=== PATIENT | male | born 1950 ===

== ENCOUNTER 2019-10-26 15:29 | Observation (INO) | payer MEDICARE ==
--- NOTE | 2019-10-26 15:42 | ER Document Report ---
ED Medical Screen (RME) - General Chief Complaint: Chest Pain Stated Complaint: CHEST PAIN Time Seen by Provider: 10/26/19 15:32 Mode of Arrival: Ambulatory Information source: Patient Notes: Patient presents complaining of chest pain to the midsternal area. Patient states pain started 5 days ago and resolved and then returned again this morning. Patient states today his arms were numb and the pain radiated into his jaw. Patient does complain of nausea and shortness of breath. Patient denies any significant medical history. I have greeted and performed a rapid initial assessment of this patient. A comprehensive ED assessment and evaluation of the patient, analysis of test results and completion of the medical decision making process will be conducted by additional ED providers. Physical Exam - Respiratory Respiratory status: No respiratory distress Chest status: Tender - Cardiovascular Rhythm: Regular Heart sounds: S1 appreciated, S2 appreciated
[2019-10-26 16:08] LABS: ABSOLUTE EOSINOPHILS # (AUTO) 0.1 10^3/uL (0.0-0.6); ABSOLUTE LYMPHOCYTES (AUTO) 1.3 10^3/uL (0.5-4.7); ABSOLUTE MONOCYTES (AUTO) 0.6 10^3/uL (0.1-1.4); ABSOLUTE NEUT (AUTO) 3.2 10^3/uL (1.7-8.2); BASOPHILS % (AUTO) 0.7 % (0-2); EOSINOPHILS % (AUTO) 2.4 % (0-6); HEMATOCRIT 43.9 % (37.9-51.0); HEMOGLOBIN 15.2 g/dL (13.5-17.0); LYMPHOCYTES % (AUTO) 24.5 % (13-45); MEAN CORPUSCULAR HEMOGLOBIN 30.3 pg (27.0-33.4); MEAN CORPUSCULAR HGB CONC 34.6 g/dL (32.0-36.0); MEAN CORPUSCULAR VOLUME 88 fl (80-97); PLATELET COUNT 227 10^3/uL (150-450); RED BLOOD COUNT 5.01 10^6/uL (4.35-5.55); RED CELL DISTRIBUTION WIDTH 13.8 % (11.5-14.0); SEGMENTED NEUTROPHILS % (AUTO) 60.4 % (42-78); TOTAL CELLS COUNTED % (AUTO) 100 %; WHITE BLOOD COUNT 5.3 10^3/uL (4.0-10.5)
--- NOTE | 2019-10-26 16:16 | RADIOLOGY REPORT (SQ) ---
EXAM DESCRIPTION: CHEST 2 VIEWS IMAGES COMPLETED DATE/TIME: 10/26/2019 4:09 pm REASON FOR STUDY: cp COMPARISON: None. EXAM PARAMETERS: NUMBER OF VIEWS: two views TECHNIQUE: Digital Frontal and Lateral radiographic views of the chest acquired. RADIATION DOSE: NA LIMITATIONS: none FINDINGS: LUNGS AND PLEURA: No opacities, masses or pneumothorax. No pleural effusion. MEDIASTINUM AND HILAR STRUCTURES: No masses or contour abnormalities. HEART AND VASCULAR STRUCTURES: Heart normal size. No evidence for failure. BONES: No acute findings. HARDWARE: None in the chest. OTHER: No other significant finding. IMPRESSION: NO ACUTE RADIOGRAPHIC FINDING IN THE CHEST. TECHNICAL DOCUMENTATION: JOB ID: [id number] 2010 [employer]- All Rights Reserved Reading location - IP/workstation name: [email or web address]
[2019-10-26 16:21] LABS: ALBUMIN 4.7 g/dL (3.5-5.0); ALKALINE PHOSPHATASE 67 U/L (38-126); ANION GAP 6 (5-19); ASPARTATE AMINO TRANSFERASE 49 U/L (17-59); BILIRUBIN,TOTAL 0.4 mg/dL (0.2-1.3); BLOOD UREA NITROGEN 10 mg/dL (7-20); CALCIUM 10.3 mg/dL (8.4-10.2); CARBON DIOXIDE 25 mmol/L (22-30); CHLORIDE 107 mmol/L (98-107); GLUCOSE 108 mg/dL (75-110); TOTAL PROTEIN 7.8 g/dL (6.3-8.2)
[2019-10-27] MEDS ORDERED: ASPIRIN 81 MG TABLET, CHEWABLE PO ONE ×2 (02:36→07:00)
--- NOTE | 2019-10-27 02:48 | ER Document Report ---
ED General - General Chief Complaint: Chest Pain Stated Complaint: CHEST PAIN Time Seen by Provider: 10/26/19 15:32 Mode of Arrival: Ambulatory - [facility] Notes: 69-year-old male history of hyperlipidemia, "borderline hypertension "presents with episodes of chest pain over the past 2 days. Patient states he was working in garden and felt sudden onset of retrosternal chest pressure radiating to bilateral jaw and bilateral arms associated with nausea, shortness of breath, feeling of impending doom that lasted for approximately 45 minutes and then resolved with rest. Patient had 2 similar episodes on day of presentation without exertion. Patient denies ever having any prior similar episodes, cardiac history, previous cardiac work-up, diabetes, lower extremity edema, PE risk factors, cough, fever, drug use - Related Data Allergies/Adverse Reactions: No Known Allergies Allergy (Verified 10/27/19 08:12) Past Medical History - General Information source: Patient - Social History Smoking Status: Unknown if Ever Smoked Family History: Reviewed & Not Pertinent Review of Systems - Review of Systems Notes: REVIEW OF SYSTEMS: CONSTITUTIONAL : Denies fever, chills, or sweats. EENT: Denies recent cold/sinus symptoms, denies throat pain CARDIOVASCULAR: +chest pain, -[place] RESPIRATORY: Denies cough, +shortness of breath. GASTROINTESTINAL: Denies abdominal pain, nausea/vomiting. GENITOURINARY: Denies difficulty urinating, painful urination. MUSCULOSKELETAL: Denies neck pain, back pain. SKIN: Denies rash or skin lesions. HEMATOLOGIC : Denies easy bruising or bleeding. LYMPHATIC: Denies swollen, enlarged glands. NEUROLOGICAL: Denies headache, denies change in gait. PSYCHIATRIC: Denies anxiety or stress or depression. Physical Exam - Vital signs Vitals: Temp Pulse Resp BP Pulse Ox 97.3 F 84 18 156/95 H 99 10/26/19 15:37 10/26/19 15:37 10/26/19 15:37 10/26/19 15:37 10/26/19 15:37 - Notes Notes: PHYSICAL EXAMINATION: GENERAL: Well-appearing, well-nourished, pleasant middle-age man ambulatory in ED and in no acute distress. HEAD: Atraumatic, normocephalic. EYES: Pupils equal round and appropriate constriction, sclera anicteric, conjunctiva are normal. ENT: nares patent, moist mucous membranes. NECK: Normal range of motion, supple without lymphadenopathy LUNGS: Breath sounds clear to auscultation bilaterally and equal. No wheezes rales or rhonchi. HEART: Regular rate and rhythm without murmurs ABDOMEN: Soft, nontender, no guarding, no masses, no CVAT EXTREMITIES: Normal range of motion, no pitting or edema. No cyanosis. NEUROLOGICAL: Awake, alert, conversing appropriately, moves all extremities spontaneously. PSYCH: Normal mood, normal affect. SKIN: Warm, Dry, normal turgor, no rashes or lesions noted. Course - Re-evaluation Re-evalutation: 10/27/19 02:46 Presentation concerning for anginal symptoms. No signs of acute ischemia on EKG and initial troponins negative. Given concerning story and ACS risk factors including age and hyperlipidemia patient appropriate for observation admission for cardiology eval/stress test. Symptoms episodic and not consistent with PE. Patient very well at time of my evaluation without any current chest pain. Will give aspirin. Discussed case with hospitalist Dr. Ocasio who has accepted patient to observation telemetry. - Vital Signs Vital signs: Temp Pulse Resp BP Pulse Ox 97.6 F 67 17 144/87 H 98 10/28/19 14:15 10/28/19 14:15 10/28/19 14:15 10/28/19 14:15 10/28/19 14:15 - Laboratory Result Diagrams: 10/26/19 15:50 10/26/19 15:50 Laboratory results interpreted by me: 10/26/19 15:50 Calcium 10.3 H ALT 54 H - EKG Interpretation by Me Additional EKG results interpreted by me: 10/26/19 16:00 Heart rate 72, normal sinus rhythm, right bundle branch block, no significant ST elevations or depressions Discharge - Discharge Clinical Impression: Chest pain Qualifiers: Chest pain type: unspecified Qualified Code(s): R07.9 - Chest pain, unspecified Condition: Good Disposition: ADMITTED OBSERVATION Admitting Provider: Amarjit (Hospitalist) Unit Admitted: Telemetry
[2019-10-27] MEDS ORDERED: MAG HYDROX/AL HYDROX/SIMETH SUSP 30 ML UDCUP PO PRN (03:16)
[2019-10-27] MEDS ORDERED: ONDANSETRON HCL INJ/PF 4 MG/2 ML SDV IV PRN (03:16)
[2019-10-27] MEDS ORDERED: MAGNESIUM HYDROXIDE SUSP 30 ML UDCUP PO PRN (03:16)
--- NOTE | 2019-10-27 06:14 | PDOC H&P ---
History of Present Illness Admission Date/PCP: 10/27/2019 02:58 No local PCP Patient complains of: Chest pain History of Present Illness: KATT FRANKLIN is a 69 year old male who presented emergency room with a 5-day history of chest pain. He admits developing sudden onset of severe substernal chest pressure with a pain/numbness sensation radiating to both sides of his neck/jaw and down both arms while doing some light work in his garden 5 days ago. The pain lasted for 45 minutes and resolved with rest. Pain was accompanied by nausea and dyspnea and was associated with a feeling of impending . He subsequently has experienced 2 similar but slightly more intense episodes, occurring while at rest, over the 24-hour period prior to his emergency room presentation. He denies other associated or accompanying signs and symptoms. He denies prior similar episodes. He has not identified any additional aggravating or ameliorating factors for his chest pain. In the emergency room he was found to have normal cardiac enzymes and an EKG that showed no evidence of ischemia or injury to the myocardium. He was subsequently admitted to the hospital on observation status for further evaluation and treatment. Past Medical History Cardiac Medical History: Reports: Hyperlipidema, Hypertension Denies: Coronary Artery Disease Pulmonary Medical History: Denies: Asthma, Chronic Obstructive Pulmonary Disease (COPD) EENT Medical History: Denies: Cataracts, Ears - Hands Neurological Medical History: Denies: Hemorrhagic CVA, Ischemic CVA, Seizures Endocrine Medical History: Denies: Diabetes Mellitus Type 1, Diabetes Mellitus Type 2, Hyperthyroidism, Hypothyroidism Renal/ Medical History: Denies: Chronic Kidney Disease, Nephrolithiasis Malignancy Medical History: Reports: None GI Medical History: Denies: Cirrhosis, Crohn's Disease, Hepatitis, Peptic Ulcer Disease, Ulcerative Colitis Musculoskeltal Medical History: Denies: Arthritis, Gout Skin Medical History: Denies: Eczema, Psoriasis Psychiatric Medical History: Denies: Alcohol Dependency, Substance Abuse, Tobacco Dependency Traumatic Medical History: Reports: None Hematology: Denies: Anemia, Bleeding Tendencies Infectious Medical History: Reports: None Past Surgical History Past Surgical History: Reports: None Social History Information Source: Patient Lives with: Spouse/Significant other Smoking Status: Former Smoker Electronic Cigarette use?: No Frequency of Alcohol Use: Social - Drinks 2 (Takata) beers daily Hx Recreational Drug Use: No Drugs: None Hx Prescription Drug Abuse: No - Advance Directive Resuscitation Status: Full Code Family History Family History: denies: CAD, DM, Hypertension, Malignancy Parental Family History Reviewed: Yes Children Family History Reviewed: No Sibling(s) Family History Reviewed.: Yes Medication/Allergy Allergies/Adverse Reactions: No Known Allergies Allergy (Unverified 10/27/19 05:26) Review of Systems Constitutional: ABSENT: chills, fever(s) Eyes: ABSENT: visual disturbances, other - Eye pain Ears: ABSENT: hearing changes, other - Ear pain Nose, Mouth, and Throat: ABSENT: headache(s), sore throat Cardiovascular: PRESENT: as per HPI, chest pain. ABSENT: palpitations Respiratory: PRESENT: as per HPI, dyspnea. ABSENT: cough Gastrointestinal: PRESENT: nausea. ABSENT: abdominal pain, diarrhea Genitourinary: ABSENT: dysuria, hematuria Musculoskeletal: ABSENT: back pain, joint swelling Integumentary: ABSENT: pruritus, rash Neurological: ABSENT: confusion, convulsions, memory loss, syncope Psychiatric: ABSENT: anxiety, depression Endocrine: ABSENT: cold intolerance, heat intolerance Hematologic/Lymphatic: ABSENT: easy bleeding, easy bruising Allergic/Immunologic: ABSENT: seasonal rhinorrhea Physical Exam Vital Signs: Temp Pulse Resp BP Pulse Ox 97.3 F 84 18 156/95 H 99 10/26/19 15:37 10/26/19 15:37 10/26/19 15:37 10/26/19 15:37 10/26/19 15:37 General appearance: PRESENT: no acute distress, cooperative Head exam: PRESENT: atraumatic, normocephalic Eye exam: PRESENT: conjunctiva pink. ABSENT: conjunctival injection, scleral icterus Ear exam: PRESENT: normal external ear exam. ABSENT: bleeding, drainage Mouth exam: PRESENT: dry mucosa, neck supple Neck exam: ABSENT: thyromegaly, tracheal deviation Respiratory exam: PRESENT: clear to auscultation xander, symmetrical, unlabored Cardiovascular exam: PRESENT: RRR. ABSENT: clicks, gallop, rubs Pulses: PRESENT: normal radial pulses, normal dorsalis pedis pul Vascular exam: PRESENT: normal capillary refill. ABSENT: pallor GI/Abdominal exam: PRESENT: normal bowel sounds, soft Rectal exam: PRESENT: deferred Extremities exam: ABSENT: joint swelling, pedal edema Musculoskeletal exam: ABSENT: deformity, dislocation Neurological exam: PRESENT: alert, oriented to person, oriented to place, oriented to time, oriented to situation, CN II-XII grossly intact. ABSENT: motor sensory deficit Psychiatric exam: PRESENT: appropriate affect, normal mood Skin exam: PRESENT: dry, intact, warm. ABSENT: jaundice, rash, urticaria Results Laboratory Results: 10/26/19 15:50 10/26/19 15:50 10/26/19 10/26/19 15:50 15:50 WBC 5.3 RBC 5.01 Hgb 15.2 Hct 43.9 MCV 88 MCH 30.3 MCHC 34.6 RDW 13.8 Plt Count 227 Seg Neutrophils % 60.4 Sodium 137.9 Potassium 4.0 Chloride 107 Carbon Dioxide 25 Anion Gap 6 BUN 10 Creatinine 0.78 Est GFR ( Amer) > 60 Glucose 108 Calcium 10.3 H Magnesium 2.2 Total Bilirubin 0.4 AST 49 Alkaline Phosphatase 67 Total Protein 7.8 Albumin 4.7 Lipase 99.9 10/26/19 10/26/19 15:50 19:42 Troponin I 0.030 0.014 Impressions: Chest X-Ray 10/26/19 15:40 IMPRESSION: NO ACUTE RADIOGRAPHIC FINDING IN THE CHEST. Assessment and Plan - Diagnosis (1) Chest pain Qualifiers: Chest pain type: unspecified Qualified Code(s): R07.9 - Chest pain, unspecified Is this a current diagnosis for this admission?: Yes (2) Hyperlipidemia Qualifiers: Hyperlipidemia type: unspecified Qualified Code(s): E78.5 - Hyperlipidemia, unspecified Is this a current diagnosis for this admission?: Yes (3) Hypertension Qualifiers: Hypertension type: essential hypertension Qualified Code(s): I10 - Essential (primary) hypertension Is this a current diagnosis for this admission?: Yes (4) Serum calcium elevated Is this a current diagnosis for this admission?: Yes (5) Elevated alanine aminotransferase (ALT) level Is this a current diagnosis for this admission?: Yes - Plan Summary Summary: Patient will be admitted observation status on the medical floor in a telemetry bed where he will receive routine supportive and symptomatic cares. He will be seen in cardiology consultation by Dr. Serrano. We will plan for a Cardiolite stress test to be done later this morning. Will use sublingual nitroglycerin as needed for chest pain. He will use morphine sulfate 2 to 4 mg IV every 2 hours as needed for chest pain not responding to nitroglycerin. He will use Ativan 1 mg IV every 4 hours as needed for anxiety or restlessness. He will be on a stress test special diet for the morning and started on a cardiac diet later in the day. Additional laboratory and/or radiographic evaluations will be obtained as needed. - Time Time Spent with patient: 15-24 minutes Medications reviewed and adjusted accordingly: Yes Anticipated discharge: Home Within: within 36 hours - Inpatient Certification Based on my medical assessment, after consideration of the patient's comorbidities, presenting symptoms, or acuity I expect that the services needed warrant INPATIENT care.: No I certify that my determination is in accordance with my understanding of Medicare's requirements for reasonable and necessary INPATIENT services [42 CFR 412.3e].: No
[2019-10-27] MEDS: HEPARIN SOD (PORCINE) 5,000 UNIT/ML 1 ML VIAL SUBCUT SCH ×3 (07:00→22:16)
[2019-10-27 07:31] LABS: CHOLESTEROL 268.25 mg/dL (0-200); CREATINE KINASE 81 U/L (55-170); TRIGLYCERIDES 228 mg/dL (<150)
[2019-10-27 07:42] LABS: CREATINE KINASE MB 0.96 ng/mL (<4.55); DIRECT LDL 193 mg/dL (<100)
[2019-10-27 07:47] LABS: TROPONIN I < 0.012 ng/mL; VLDL CHOLESTEROL 45.6 mg/dL (10-31)
--- NOTE | 2019-10-27 09:26 | EKG REPORT ---
SEVERITY:- ABNORMAL ECG - SINUS RHYTHM PROBABLE LEFT ATRIAL ABNORMALITY RIGHT BUNDLE BRANCH BLOCK : Confirmed by: Abbey Sabillon 27-Oct-2019 09:25:29
[2019-10-27] MEDS: DOCUSATE SODIUM 100 MG CAPSULE PO SCH (10:19)
[2019-10-27] MEDS: FAMOTIDINE 20 MG TABLET PO SCH ×2 (10:19→22:16)
--- NOTE | 2019-10-27 11:59 | PDOC CONSULTATION ---
Consultation Consult Date: 10/27/19 Attending physician:: NITA LAWSON Provider Consulted: KATIE RUSSELL Consult reason:: CP History of Present Illness Admission Date/PCP: 10/27/19 03:22 History of Present Illness: KATT FRANKLIN is a 69 year old male with history of hypertension, hyperlipidemia, ex-smoker who quit 5 years ago and not no family history of coronary artery disease who is consulted to our service for evaluation of chest pain. The patient began with chest pain approximately 5 days ago and describes it as a severe substernal chest pressure radiating to both sides of his neck/jaw and down both arms and his lower jaw. The pain lasted for 45 minutes and resolved essentially spontaneously. He did feel short of breath but denied diaphoresis, palpitations, syncope and presyncope. He subsequently has experienced 2 similar but slightly more intense episodes, occurring while at rest, over the 24-hour period prior to his emergency room presentation. He denies prior episodes of chest pain and had been swimming recently without chest pain. He states that he feels a similar pain but localized to the right side of the chest when he lays on his left side. He also states that he occasionally feels the substernal pressure when putting pressure on his chest. Physical exam on 10/27/2019: GENERAL: Pleasant and conversational. Oriented x3 with normal mood. Not in acute distress. Well groomed and well developed. HEENT: Normocephalic, atraumatic. Pupils equal. Sclerae anicteric. Oropharynx moist. NECK: No JVD. No carotid bruits. LUNGS: Clear to auscultation bilaterally. Normal respiratory effort without the use of accessory muscles or intercostal retractions. CARDIOVASCULAR: Regular rate and rhythm, normal S1 and S2 without murmurs, rubs, or gallops. PMI not displaced. ABDOMEN: No masses or tenderness to palpation. No bruit. No splenomegaly or hepatomegaly. No abdominal aorta bruit noted. EXTREMITIES: No edema, no cyanosis, no clubbing. +2 pulses femoral and pedal pulses bilaterally. SKIN: No lesions or rashes. MUSCULOSKELETAL: Palpation of the chest triggers index symptoms. NEUROLOGIC: Nonfocal. No gross sensory or motor deficits bilateral upper or lower extremities. Past Medical History Cardiac Medical History: Reports: Hyperlipidema, Hypertension Denies: Coronary Artery Disease Pulmonary Medical History: Denies: Asthma, Chronic Obstructive Pulmonary Disease (COPD) EENT Medical History: Denies: Cataracts, Ears - Hands Neurological Medical History: Denies: Hemorrhagic CVA, Ischemic CVA, Seizures Endocrine Medical History: Denies: Diabetes Mellitus Type 1, Diabetes Mellitus Type 2, Hyperthyroidism, Hypothyroidism Renal/ Medical History: Denies: Chronic Kidney Disease, Nephrolithiasis Malignancy Medical History: Reports: None GI Medical History: Denies: Cirrhosis, Crohn's Disease, Hepatitis, Peptic Ulcer Disease, Ulcerative Colitis Musculoskeltal Medical History: Denies: Arthritis, Gout Skin Medical History: Denies: Eczema, Psoriasis Psychiatric Medical History: Denies: Alcohol Dependency, Depression, Substance Abuse, Tobacco Dependency Traumatic Medical History: Reports: None Hematology: Denies: Anemia, Bleeding Tendencies Infectious Medical History: Reports: None Past Surgical History Past Surgical History: Reports: None Social History Lives with: Spouse/Significant other Smoking Status: Former Smoker Cigarettes Packs Per Day: 0.5 Electronic Cigarette use?: No Last Time Smoked: 2014 Frequency of Alcohol Use: Social - Drinks 2 (Takata) beers daily Hx Recreational Drug Use: No Drugs: None Hx Prescription Drug Abuse: No - Advance Directive Resuscitation Status: Full Code Family History Family History: denies: CAD, DM, Hypertension, Malignancy Parental Family History Reviewed: Yes Children Family History Reviewed: Yes Sibling(s) Family History Reviewed.: Yes Medication/Allergy Home Medications: No Home Medications 10/27/19 Allergies/Adverse Reactions: No Known Allergies Allergy (Verified 10/27/19 08:12) Physical Exam Vital Signs: Temp Pulse Resp BP Pulse Ox 97.5 F 67 16 144/87 H 99 10/27/19 05:56 10/27/19 05:56 10/27/19 05:56 10/27/19 05:56 10/27/19 05:56 Intake & Output 10/26/19 10/27/19 10/28/19 06:59 06:59 06:59 Intake Total 0 Output Total 0 Balance 0 Weight 82.4 kg Results Laboratory Results: 10/26/19 15:50 10/26/19 15:50 10/26/19 10/26/19 15:50 15:50 WBC 5.3 RBC 5.01 Hgb 15.2 Hct 43.9 MCV 88 MCH 30.3 MCHC 34.6 RDW 13.8 Plt Count 227 Seg Neutrophils % 60.4 Sodium 137.9 Potassium 4.0 Chloride 107 Carbon Dioxide 25 Anion Gap 6 BUN 10 Creatinine 0.78 Est GFR ( Amer) > 60 Glucose 108 Calcium 10.3 H Magnesium 2.2 Total Bilirubin 0.4 AST 49 Alkaline Phosphatase 67 Total Protein 7.8 Albumin 4.7 Lipase 99.9 10/26/19 10/26/19 15:50 19:42 Troponin I 0.030 0.014 Impressions: Chest X-Ray 10/26/19 15:40 IMPRESSION: NO ACUTE RADIOGRAPHIC FINDING IN THE CHEST. 10/26/19 15:50 10/26/19 15:50 MCV 88 fl (80-97) 10/26/19 15:50 MCH 30.3 pg (27.0-33.4) 10/26/19 15:50 MCHC 34.6 g/dL (32.0-36.0) 10/26/19 15:50 RDW 13.8 % (11.5-14.0) 10/26/19 15:50 Seg Neutrophils % 60.4 % (42-78) 10/26/19 15:50 Chloride 107 mmol/L (98-107) 10/26/19 15:50 Carbon Dioxide 25 mmol/L (22-30) 10/26/19 15:50 Anion Gap 6 (5-19) 10/26/19 15:50 Est GFR ( Amer) > 60 (>60) 10/26/19 15:50 Glucose 108 mg/dL (75-110) 10/26/19 15:50 Calcium 10.3 mg/dL (8.4-10.2) H 10/26/19 15:50 Magnesium 2.2 mg/dL (1.6-2.3) 10/26/19 15:50 Total Bilirubin 0.4 mg/dL (0.2-1.3) 10/26/19 15:50 AST 49 U/L (17-59) 10/26/19 15:50 Alkaline Phosphatase 67 U/L (38-126) 10/26/19 15:50 Total Protein 7.8 g/dL (6.3-8.2) 10/26/19 15:50 Albumin 4.7 g/dL (3.5-5.0) 10/26/19 15:50 Lipase 99.9 U/L (23-300) 10/26/19 15:50 10/26/19 10/26/19 15:50 19:42 Troponin I 0.030 0.014 Current Medication List Generic Name Dose Route Start Last Admin Trade Name Maico PRN Reason Stop Dose Admin Al Hydrox/Mg Hydrox/Simethicone 30 ml 10/27/19 03:16 Maalox Plus Susp 30 Udcup PO 11/26/19 03:15 Q6HP PRN HEARTBURN Docusate Sodium 100 mg 10/27/19 10:00 Colace 100 Mg Capsule PO 11/26/19 09:59 DAILY NAZIA Famotidine 20 mg 10/27/19 10:00 Pepcid 20 Mg Tablet PO 11/26/19 09:59 Q12 NAZIA Heparin Sodium (Porcine) 5,000 unit 10/27/19 06:00 10/27/19 07:00 Heparin Inj 5,000 Units/Ml 1 Ml Vial SUBCUT 11/26/19 05:59 5,000 unit Q8 NAZIA Administration Magnesium Hydroxide 30 ml 10/27/19 03:16 Milk Of Magnesia 30 Ml Udcup PO 11/26/19 03:15 DAILYP PRN FOR CONSTIPATION Ondansetron HCl 4 mg 10/27/19 03:16 Zofran Inj/Pf 4 Mg/2 Ml Sdv IV 11/26/19 03:15 Q4HP PRN FOR NAUSEA/VOMITING Sodium Chloride 2.5 ml 10/27/19 06:00 10/27/19 07:08 Saline Flush 2.5 Ml Monoject Prefil Syrin IV 11/26/19 05:59 2.5 ml Q8 NAZIA Administration Discontinued Medications Generic Name Dose Route Start Last Admin Trade Name Maico PRN Reason Stop Dose Admin Aspirin 324 mg 10/27/19 02:36 10/27/19 07:09 Aspirin 81 Mg Chewable Tablet PO 10/27/19 02:37 Not Given NOW ONE Aspirin 324 mg 10/27/19 07:00 10/27/19 07:11 Aspirin 81 Mg Chewable Tablet PO 10/27/19 07:01 324 mg NOW ONE Administration Assessment & Plan - Diagnosis (1) Chest pain Qualifiers: Chest pain type: unspecified Qualified Code(s): R07.9 - Chest pain, unspecified Is this a current diagnosis for this admission?: Yes Plan: 69-year-old male with recurrent chest pain with both typical and atypical features in the setting of cardiac risk factors of hypertension, hyperlipidemia, gender and ex-smoker. His initial EKG showed normal sinus rhythm with right bundle branch block but no ischemic symptoms and his initial troponin was indeterminate however has trended down. Given the recurrence of his symptoms and significant cardiac risk factors we will proceed with Lexiscan nuclear stress test. Recommendations: -Continue with baby aspirin daily. -Continue with cardiac telemetry. -Sublingual nitroglycerin if chest pain recurs. -Stat EKG if chest pain recurs. -Echocardiogram to assess for structural heart disease. -Lexiscan nuclear stress test as scheduled. (2) Hyperlipidemia Qualifiers: Hyperlipidemia type: unspecified Qualified Code(s): E78.5 - Hyperlipidemia, unspecified Is this a current diagnosis for this admission?: Yes Plan: His LDL is 193 therefore he should be treated with high intensity statin therapy. Recommendations: -Start atorvastatin 80 mg daily. -LFTs a lipid panel in 6 weeks. (3) Hypertension Qualifiers: Hypertension type: essential hypertension Qualified Code(s): I10 - Essential (primary) hypertension Is this a current diagnosis for this admission?: Yes Plan: His blood pressure is above his goal of 130/80 or below. Recommendations: -Start lisinopril 10 mg daily. -Continue to monitor response to ALVARO inhibitor.
--- NOTE | 2019-10-27 16:31 | PDOC PROGRESS REPORT ---
Subjective Progress Note for:: 10/27/19 Subjective:: The patient is comfortable. No complaints of chest pain or pressure. He does report intermittent shortness of breath. He can happen when he ambulates but he will also reports some shortness of breath even when he is sitting and eating. Reason For Visit: CHEST PAIN Physical Exam Vital Signs: Temp Pulse Resp BP Pulse Ox 97.8 F 67 15 123/71 98 10/27/19 12:14 10/27/19 14:00 10/27/19 12:14 10/27/19 12:14 10/27/19 12:14 Intake & Output 10/26/19 10/27/19 10/28/19 06:59 06:59 06:59 Intake Total 0 Output Total 0 Balance 0 Weight 82.4 kg General appearance: PRESENT: no acute distress, cooperative, well-developed Head exam: PRESENT: atraumatic, normocephalic Eye exam: PRESENT: conjunctiva pink. ABSENT: scleral icterus Respiratory exam: PRESENT: clear to auscultation xander, symmetrical, unlabored. ABSENT: rales, rhonchi, tachypnea, wheezes Cardiovascular exam: PRESENT: RRR, +S1, +S2. ABSENT: bradycardia, diastolic murmur, irregular rhythm, systolic murmur, tachycardia GI/Abdominal exam: PRESENT: normal bowel sounds, soft. ABSENT: distended, tenderness Extremities exam: ABSENT: pedal edema Neurological exam: PRESENT: alert, awake, oriented to person, oriented to place, oriented to time, oriented to situation, CN II-XII grossly intact. ABSENT: altered, motor sensory deficit Psychiatric exam: PRESENT: appropriate affect, normal mood. ABSENT: agitated, anxious Focused psych exam: ABSENT: delusional, paranoid, restlessness Skin exam: PRESENT: dry, normal color, warm. ABSENT: rash Results Laboratory Results: 10/26/19 15:50 10/26/19 15:50 10/27/19 10/27/19 06:41 06:41 Magnesium 2.2 Triglycerides 228 H Cholesterol 268.25 H LDL Cholesterol Direct 193 H VLDL Cholesterol 45.6 H HDL Cholesterol 44 TSH 2.81 10/26/19 10/26/19 10/27/19 15:50 19:42 06:41 Creatine Kinase 81 CK-MB (CK-2) Troponin I 0.030 0.014 10/27/19 06:41 Creatine Kinase CK-MB (CK-2) 0.96 Troponin I < 0.012 Impressions: Chest X-Ray 10/26/19 15:40 IMPRESSION: NO ACUTE RADIOGRAPHIC FINDING IN THE CHEST. Assessment and Plan - Diagnosis (1) Chest pain Qualifiers: Chest pain type: unspecified Qualified Code(s): R07.9 - Chest pain, unspecified Is this a current diagnosis for this admission?: Yes Plan: Patient is not having any further chest discomfort. His serial troponins started at 0.030 (normal) and have decreased to less than 0.012. He was given aspirin on admission. I will continue aspirin 81 mg daily. He is due for stress test tomorrow. (2) Hyperlipidemia Qualifiers: Hyperlipidemia type: unspecified Qualified Code(s): E78.5 - Hyperlipidemia, unspecified Is this a current diagnosis for this admission?: Yes Plan: Lipid panel shows increased cholesterol, increased LDL and increased triglycerides. Start atorvastatin 40 mg daily (3) Hypertension Qualifiers: Hypertension type: essential hypertension Qualified Code(s): I10 - Essential (primary) hypertension Is this a current diagnosis for this admission?: Yes Plan: Blood pressures were slightly elevated on admission but this could have been due to the chest discomfort and anxiety being in the emergency department. Blood pressures have been acceptable today. No medication at this time. (4) Serum calcium elevated Is this a current diagnosis for this admission?: Yes Plan: Serum calcium is only 0.1 above the upper limit normal. This is clinically insignificant. (5) Elevated alanine aminotransferase (ALT) level Is this a current diagnosis for this admission?: Yes Plan: ALT is 54. Upper limit normal is 50 and this is a clinically insignificant changes. - Plan Summary Summary: Patient will be admitted observation status on the medical floor in a telemetry bed where he will receive routine supportive and symptomatic cares. He will be seen in cardiology consultation by Dr. Serrano. We will plan for a Cardiolite stress test to be done later this morning. Will use sublingual nitroglycerin as needed for chest pain. He will use morphine sulfate 2 to 4 mg IV every 2 hours as needed for chest pain not responding to nitroglycerin. He will use Ativan 1 mg IV every 4 hours as needed for anxiety or restlessness. He will be on a stress test special diet for the morning and started on a cardiac diet later in the day. Additional laboratory and/or radiographic evaluations will be obtained as needed. - Time Time Spent with patient: 15-24 minutes Medications reviewed and adjusted accordingly: Yes Anticipated discharge: Home Within: within 24 hours
[2019-10-27 17:00] LABS: INTERNATIONAL RATION (INR) 0.94; PROTHROMBIN TIME 12.6 SEC (11.4-15.4)
[2019-10-27 17:02] LABS: D-DIMER 0.68 ug/mL (0.00-0.50)
[2019-10-28] MEDS: HEPARIN SOD (PORCINE) 5,000 UNIT/ML 1 ML VIAL SUBCUT SCH (05:54)
[2019-10-28] MEDS: DOCUSATE SODIUM 100 MG CAPSULE PO SCH (10:30)
[2019-10-28] MEDS: FAMOTIDINE 20 MG TABLET PO SCH (10:30)
--- NOTE | 2019-10-28 10:33 | PDOC PROGRESS REPORT ---
Subjective Progress Note for:: 10/28/19 Subjective:: KATT ALANIZ is a 69 year old male with history of hypertension, hy perlipidemia, ex-smoker who quit 5 years ago and not no family history of coronary artery disease who is consulted to our service for evaluation of chest pain. The patient began with chest pain approximately 5 days ago and describes it as a severe substernal chest pressure radiating to both sides of his neck/jaw and down both arms and his lower jaw. The pain lasted for 45 minutes and resolved essentially spontaneously. He did feel short of breath but denied diaphoresis, palpitations, syncope and presyncope. He subsequently has experienced 2 similar but slightly more intense episodes, occurring while at rest, over the 24-hour period prior to his emergency room presentation. He denies prior episodes of chest pain and had been swimming recently without chest pain. He states that he feels a similar pain but localized to the right side of the chest when he lays on his left side. He also states that he occasionally feels the substernal pressure when putting pressure on his chest. 10/28/19: The patient had an uneventful night and denies recurrence of index symptoms. Physical exam on 10/28/2019: GENERAL: Pleasant and conversational. Oriented x3 with normal mood. Not in acute distress. Well groomed and well developed. HEENT: Normocephalic, atraumatic. Pupils equal. Sclerae anicteric. Oropharynx moist. NECK: No JVD. No carotid bruits. LUNGS: Clear to auscultation bilaterally. Normal respiratory effort without the use of accessory muscles or intercostal retractions. CARDIOVASCULAR: Regular rate and rhythm, normal S1 and S2 without murmurs, rubs, or gallops. PMI not displaced. ABDOMEN: No masses or tenderness to palpation. No bruit. No splenomegaly or hepatomegaly. No abdominal aorta bruit noted. EXTREMITIES: No edema, no cyanosis, no clubbing. +2 pulses femoral and pedal pulses bilaterally. SKIN: No lesions or rashes. MUSCULOSKELETAL: Palpation of the chest triggers index symptoms. NEUROLOGIC: Nonfocal. No gross sensory or motor deficits bilateral upper or lower extremities. Cardiac studies: -Lexiscan MPS: Name: Katt Alaniz : [birth year] Date: OCT 23 The patient underwent a stress/rest, single isotope SPECT Imaging with pharmacological stress and gated SPECT imaging on for evaluation of. The patient underwent infusion of regadnoson 0.4mg IV using the standard protocol. The heart rate was 71 beats per minute at baseline and increased to 109 beats during the infusion of regadenoson. The resting blood pressure was 118/73 mm/Hg and increased to 143/71 mm/Hg, which is a normal response. The patient complained of dyspnea during the procedure. The resting electrocardiogram demonstrated NSR with RBBB. Stress electrocardiogram is non-diagnostic in the setting of pharmacological stress. Myocardial perfusion imaging was performed at rest following the injection of 12.32 mCi of sestamibi. At peak pharmacolgic effect, the patient was injected with 36.5 mCi of sestamibi. Gating post-stress tomographic imaging was performed 60 minutes after stress. Findings The overall quality of the study is good. Raw images demonstrate inferior wall GI contamination in both the resting and stress images. Left ventricular cavity is noted to be normal on the rest and stress studies. Resting SPECT images demonstrate homogeneous tracer distribution throughout the myocardium. The stress images reveal homogeneous tracer distribution throughout the myocardium. Gated SPECT imaging reveals normal myocardial thickening and wall motion. The left ventricular ejection fraction was calculated to be 60% Impression -Myocardial perfusion imaging is normal with the above artifacts. -There is no scintigraphic evidence of ischemia or infarct. -Overall left ventricular systolic function was normal without wall motion abnormalities. -There are no prior studies for comparison. Reason For Visit: CHEST PAIN Physical Exam Vital Signs: Temp Pulse Resp BP Pulse Ox 97.5 F 65 20 104/64 100 10/28/19 03:45 10/28/19 03:45 10/28/19 03:45 10/28/19 03:45 10/28/19 03:45 Intake & Output 10/26/19 10/27/19 10/28/19 06:59 06:59 06:59 Intake Total 0 837 Output Total 0 Balance 0 837 Weight 82.4 kg 83.9 kg Results Laboratory Results: 10/26/19 15:50 10/26/19 15:50 10/27/19 10/27/19 06:41 06:41 Magnesium 2.2 Triglycerides 228 H Cholesterol 268.25 H LDL Cholesterol Direct 193 H VLDL Cholesterol 45.6 H HDL Cholesterol 44 TSH 2.81 10/26/19 10/26/19 10/27/19 15:50 19:42 06:41 Creatine Kinase 81 CK-MB (CK-2) Troponin I 0.030 0.014 10/27/19 06:41 Creatine Kinase CK-MB (CK-2) 0.96 Troponin I < 0.012 Impressions: Chest X-Ray 10/26/19 15:40 IMPRESSION: NO ACUTE RADIOGRAPHIC FINDING IN THE CHEST. 10/26/19 15:50 10/26/19 15:50 MCV 88 fl (80-97) 10/26/19 15:50 MCH 30.3 pg (27.0-33.4) 10/26/19 15:50 MCHC 34.6 g/dL (32.0-36.0) 10/26/19 15:50 RDW 13.8 % (11.5-14.0) 10/26/19 15:50 Seg Neutrophils % 60.4 % (42-78) 10/26/19 15:50 Chloride 107 mmol/L (98-107) 10/26/19 15:50 Carbon Dioxide 25 mmol/L (22-30) 10/26/19 15:50 Anion Gap 6 (5-19) 10/26/19 15:50 Est GFR ( Amer) > 60 (>60) 10/26/19 15:50 Glucose 108 mg/dL (75-110) 10/26/19 15:50 Calcium 10.3 mg/dL (8.4-10.2) H 10/26/19 15:50 Magnesium 2.2 mg/dL (1.6-2.3) 10/27/19 06:41 Total Bilirubin 0.4 mg/dL (0.2-1.3) 10/26/19 15:50 AST 49 U/L (17-59) 10/26/19 15:50 Alkaline Phosphatase 67 U/L (38-126) 10/26/19 15:50 Total Protein 7.8 g/dL (6.3-8.2) 10/26/19 15:50 Albumin 4.7 g/dL (3.5-5.0) 10/26/19 15:50 Triglycerides 228 mg/dL (<150) H 10/27/19 06:41 Cholesterol 268.25 mg/dL (0-200) H 10/27/19 06:41 LDL Cholesterol Direct 193 mg/dL (<100) H 10/27/19 06:41 VLDL Cholesterol 45.6 mg/dL (10-31) H 10/27/19 06:41 HDL Cholesterol 44 mg/dL (>40) 10/27/19 06:41 Lipase 99.9 U/L (23-300) 10/26/19 15:50 TSH 2.81 uIU/mL (0.47-4.68) 10/27/19 06:41 10/26/19 10/26/19 10/27/19 15:50 19:42 06:41 Creatine Kinase 81 CK-MB (CK-2) Troponin I 0.030 0.014 10/27/19 06:41 Creatine Kinase CK-MB (CK-2) 0.96 Troponin I < 0.012 Current Medication List Generic Name Dose Route Start Last Admin Trade Name Freq PRN Reason Stop Dose Admin Al Hydrox/Mg Hydrox/Simethicone 30 ml 10/27/19 03:16 Maalox Plus Susp 30 Udcup PO 11/26/19 03:15 Q6HP PRN HEARTBURN Aspirin 81 mg 10/28/19 22:00 Ecotrin 81 Mg Ec Tablet PO 11/27/19 21:59 QHS NAZIA Atorvastatin Calcium 40 mg 10/28/19 22:00 Lipitor 40 Mg Tablet PO 11/27/19 21:59 QHS [facility] Docusate Sodium 100 mg 10/27/19 10:00 10/27/19 10:19 Colace 100 Mg Capsule PO 11/26/19 09:59 100 mg DAILY NAZIA Administration Famotidine 20 mg 10/27/19 10:00 10/27/19 22:16 Pepcid 20 Mg Tablet PO 11/26/19 09:59 20 mg Q12 NAZIA Administration Heparin Sodium (Porcine) 5,000 unit 10/27/19 06:00 10/28/19 05:54 Heparin Inj 5,000 Units/Ml 1 Ml Vial SUBCUT 11/26/19 05:59 5,000 unit Q8 NAZIA Administration Magnesium Hydroxide 30 ml 10/27/19 03:16 Milk Of Magnesia 30 Ml Udcup PO 11/26/19 03:15 DAILYP PRN FOR CONSTIPATION Ondansetron HCl 4 mg 10/27/19 03:16 Zofran Inj/Pf 4 Mg/2 Ml Sdv IV 11/26/19 03:15 Q4HP PRN FOR NAUSEA/VOMITING Sodium Chloride 2.5 ml 10/27/19 06:00 10/27/19 22:13 Saline Flush 2.5 Ml Monoject Prefil Syrin IV 11/26/19 05:59 Not Given Q8 NAZIA Discontinued Medications Generic Name Dose Route Start Last Admin Trade Name Freq PRN Reason Stop Dose Admin Aspirin 324 mg 10/27/19 02:36 10/27/19 07:09 Aspirin 81 Mg Chewable Tablet PO 10/27/19 02:37 Not Given NOW ONE Aspirin 324 mg 10/27/19 07:00 10/27/19 07:11 Aspirin 81 Mg Chewable Tablet PO 10/27/19 07:01 324 mg NOW ONE Administration Assessment & Plan - Diagnosis (1) Chest pain Qualifiers: Chest pain type: unspecified Qualified Code(s): R07.9 - Chest pain, un specified Is this a current diagnosis for this admission?: Yes Plan: 69-year-old male with recurrent chest pain with both typical and atypical features in the setting of cardiac risk factors of hypertension, hyperlipidemia, gender and ex-smoker. His initial EKG showed normal sinus rhythm with right bundle branch block but no ischemic symptoms and his initial troponin was indeterminate however has trended down. His pharmacological MPS this morning is normal. Recommendations: -No further ischemic cardiac work up indicated at this time. -Primary prevention measures. -Cardiology will sign off the case. (2) Hyperlipidemia Qualifiers: Hyperlipidemia type: unspecified Qualified Code(s): E78.5 - Hyperlipidemia, unspecified Is this a current diagnosis for this admission?: Yes Plan: His LDL is 193, he was begun on lipitor 40mg qd. Recommendations: -Continue with statin therapy. -LFTs a lipid panel in 6 weeks. -F/U with primary care provider. (3) Hypertension Qualifiers: Hypertension type: essential hypertension Qualified Code(s): I10 - Essential (primary) hypertension Is this a current diagnosis for this admission?: Yes Plan: His blood pressure is now at goal. Recommendations: -Continue with clinical follow up. -Follow up with primary care provider.
[2019-10-28] MEDS ORDERED: REGADENOSON INJ 0.4 MG/5 ML DISP.SYRIN IV ONE (10:44)
--- NOTE | 2019-10-28 13:46 | PDOC DISCHARGE SUMMARY ---
Impression - Admit/DC Date/PCP Admission Date/Primary Care Provider: 10/27/19 03:22 Discharge Date: 10/28/19 - Discharge Diagnosis (1) Chest pain Is this a current diagnosis for this admission?: Yes (2) Hyperlipidemia Is this a current diagnosis for this admission?: Yes (3) Hypertension Is this a current diagnosis for this admission?: Yes (4) Serum calcium elevated Is this a current diagnosis for this admission?: Yes (5) Elevated alanine aminotransferase (ALT) level Is this a current diagnosis for this admission?: Yes - Assessment Summary: Patient will be admitted observation status on the medical floor in a telemetry bed where he will receive routine supportive and symptomatic cares. He will be seen in cardiology consultation by Dr. Serrano. We will plan for a Cardiolite stress test to be done later this morning. Will use sublingual nitroglycerin as needed for chest pain. He will use morphine sulfate 2 to 4 mg IV every 2 hours as needed for chest pain not responding to nitroglycerin. He will use Ativan 1 mg IV every 4 hours as needed for anxiety or restlessness. He will be on a stress test special diet for the morning and started on a cardiac diet later in the day. Additional laboratory and/or radiographic evaluations will be obtained as needed. 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 He admits developing sudden onset of severe substernal chest pressure with a pain/numbness sensation radiating to both sides of his neck/jaw and down both arms while doing some light work in his garden 5 days ago. The pain lasted for 45 minutes and resolved with rest. Pain was accompanied by nausea and dyspnea and was associated with a feeling of impending . He subsequently has experienced 2 similar but slightly more intense episodes, occurring while at rest, over the 24-hour period prior to his emergency room presentation. He denies other associated or accompanying signs and symptoms. He denies prior similar episodes. He has not identified any additional aggravating or ameliorating factors for his chest pain. In the emergency room he was found to have normal cardiac enzymes and an EKG that showed no evidence of ischemia or injury to the myocardium. He was subsequently admitted to the hospital on observation status for further evaluation and treatment. Hospital Course Hospital Course: Unremarkable hospital course. Due to an error in the computer system the isotope for his nuclear stress test was not available on the day of admission. The next morning did have his stress test which was negative. It was noted that his lipid panel had elevated triglycerides, total cholesterol and LDL. He was started on statin therapy and encouraged to take a baby aspirin daily. Physical Exam Vital Signs: Temp Pulse Resp BP Pulse Ox 97.6 F 67 17 128/70 H 98 10/28/19 11:52 10/28/19 11:52 10/28/19 11:52 10/28/19 11:52 10/28/19 11:52 Intake & Output 10/27/19 10/28/19 10/29/19 06:59 06:59 06:59 Intake Total 0 837 Output Total 0 Balance 0 837 Weight 82.4 kg 83.9 kg General appearance: PRESENT: no acute distress Respiratory exam: PRESENT: clear to auscultation xander, symmetrical, unlabored. ABSENT: rales, rhonchi, tachypnea, wheezes Cardiovascular exam: PRESENT: RRR, +S1, +S2 GI/Abdominal exam: PRESENT: normal bowel sounds, soft. ABSENT: tenderness Neurological exam: PRESENT: alert, awake, oriented to person, oriented to place, oriented to time, oriented to situation, CN II-XII grossly intact Results Laboratory Results: WBC 5.3 10^3/uL (4.0-10.5) 10/26/19 15:50 RBC 5.01 10^6/uL (4.35-5.55) 10/26/19 15:50 Hgb 15.2 g/dL (13.5-17.0) 10/26/19 15:50 Hct 43.9 % (37.9-51.0) 10/26/19 15:50 MCV 88 fl (80-97) 10/26/19 15:50 MCH 30.3 pg (27.0-33.4) 10/26/19 15:50 MCHC 34.6 g/dL (32.0-36.0) 10/26/19 15:50 RDW 13.8 % (11.5-14.0) 10/26/19 15:50 Plt Count 227 10^3/uL (150-450) 10/26/19 15:50 Lymph % (Auto) 24.5 % (13-45) 10/26/19 15:50 [place] % (Auto) 12.0 % (3-13) 10/26/19 15:50 Eos % (Auto) 2.4 % (0-6) 10/26/19 15:50 Baso % (Auto) 0.7 % (0-2) 10/26/19 15:50 Absolute Neuts (auto) 3.2 10^3/uL (1.7-8.2) 10/26/19 15:50 Absolute Lymphs (auto) 1.3 10^3/uL (0.5-4.7) 10/26/19 15:50 Absolute Monos (auto) 0.6 10^3/uL (0.1-1.4) 10/26/19 15:50 Absolute Eos (auto) 0.1 10^3/uL (0.0-0.6) 10/26/19 15:50 Absolute Basos (auto) 0.0 10^3/uL (0.0-0.2) 10/26/19 15:50 Seg Neutrophils % 60.4 % (42-78) 10/26/19 15:50 PT 12.6 SEC (11.4-15.4) 10/27/19 16:44 INR 0.94 10/27/19 16:44 D-Dimer 0.68 ug/mL (0.00-0.50) H 10/27/19 16:44 Sodium 137.9 mmol/L (137-145) 10/26/19 15:50 Potassium 4.0 mmol/L (3.6-5.0) 10/26/19 15:50 Chloride 107 mmol/L (98-107) 10/26/19 15:50 Carbon Dioxide 25 mmol/L (22-30) 10/26/19 15:50 Anion Gap 6 (5-19) 10/26/19 15:50 BUN 10 mg/dL (7-20) 10/26/19 15:50 Creatinine 0.78 mg/dL (0.52-1.25) 10/26/19 15:50 Est GFR ( Amer) > 60 (>60) 10/26/19 15:50 Est GFR (MDRD) Non-Af > 60 (>60) 10/26/19 15:50 Glucose 108 mg/dL (75-110) 10/26/19 15:50 Calcium 10.3 mg/dL (8.4-10.2) H 10/26/19 15:50 Magnesium 2.2 mg/dL (1.6-2.3) 10/27/19 06:41 Total Bilirubin 0.4 mg/dL (0.2-1.3) 10/26/19 15:50 Direct Bilirubin 0.0 mg/dL (0.0-0.4) 10/26/19 15:50 Neonat Total Bilirubin Not Reportable 10/26/19 15:50 Neonat Direct Bilirubin Not Reportable 10/26/19 15:50 Neonat Indirect Bili Not Reportable 10/26/19 15:50 AST 49 U/L (17-59) 10/26/19 15:50 ALT 54 U/L (<50) H 10/26/19 15:50 Alkaline Phosphatase 67 U/L (38-126) 10/26/19 15:50 Creatine Kinase 81 U/L (55-170) 10/27/19 06:41 CK-MB (CK-2) 0.96 ng/mL (<4.55) 10/27/19 06:41 Troponin I < 0.012 ng/mL 10/27/19 06:41 Total Protein 7.8 g/dL (6.3-8.2) 10/26/19 15:50 Albumin 4.7 g/dL (3.5-5.0) 10/26/19 15:50 Triglycerides 228 mg/dL (<150) H 10/27/19 06:41 Cholesterol 268.25 mg/dL (0-200) H 10/27/19 06:41 LDL Cholesterol Direct 193 mg/dL (<100) H 10/27/19 06:41 VLDL Cholesterol 45.6 mg/dL (10-31) H 10/27/19 06:41 HDL Cholesterol 44 mg/dL (>40) 10/27/19 06:41 Lipase 99.9 U/L (23-300) 10/26/19 15:50 TSH 2.81 uIU/mL (0.47-4.68) 10/27/19 06:41 10/26/19 10/26/19 10/27/19 15:50 19:42 06:41 CK-MB (CK-2) 0.96 Troponin I 0.030 0.014 < 0.012 Impressions: Chest X-Ray 10/26/19 15:40 IMPRESSION: NO ACUTE RADIOGRAPHIC FINDING IN THE CHEST. Plan Health Concerns: Several risk factors for heart disease. Patient needs to establish with a follow-up with a primary care provider Plan of Treatment: Statin and aspirin therapy daily Goals: Improved lipid panel, regular exercise and decrease cardiac risk Time Spent: Greater than 30 Minutes Stroke Is this a Stroke Patient?: No Acute Heart Failure - Is this a Heart Failure Patient?: No
[2019-10-28 14:18] VITALS: BP 144/87
[2019-10-28] MEDS ORDERED: ATORVASTATIN CALCIUM 40 MG TABLET PO SCH (22:00)
[2019-10-28] MEDS ORDERED: ASPIRIN 81 MG TABLET, ENT COATED PO SCH (22:00)
== END 2019-10-28 15:07 | disposition home or self-care (01) ==
LOC: ER 15:29 → EH 10-27 03:22 → 5 10-27 05:50
PROVIDERS: ADMIT Emergency Medicine; ATTEND Hospitalist
DX: R07.89 Other chest pain (principal); E78.5 Hyperlipidemia, unspecified; I10 Essential (primary) hypertension; E83.52 Hypercalcemia; R74.0 Nonspecific elevation of levels of transaminase and lactic acid dehydrogenase [LDH]; R20.0 Anesthesia of skin; R11.0 Nausea; R06.00 Dyspnea, unspecified; I45.10 Unspecified right bundle-branch block; Z87.891 Personal history of nicotine dependence
CPT/HCPCS: 93005; 99285; 36415 ×2; 82553; 82550; 83690; 83735 ×2; 84443; 85025; 85610; 80053; 84484 ×2; 85379; 80061; 93017; 71046; 78452; 93010; A9500; J2785; A9270 ×5; J1644 ×2; J3490; Q9969; G0378